=== PATIENT | male | born 1955 | race Caucasian/White ===

== ENCOUNTER 2017-05-12 04:49 | Inpatient (IN) | payer BC ==
[2017-04-15 13:51] VITALS: BMI 31.0
--- NOTE | 2017-04-15 14:25 | PAT Medication Instructions ---
Service Date Apr 15, 2017. Current Home Medication List Cholecalciferol (Vitamin D3), 1 TAB PO QAM Ibuprofen (Advil), 400 MG PO QID PRN for Pain [Dr. Sara Vernon], 1 PKT PO QAM Medication Instructions For Your Scheduled Surgery - Hold the following medications 10 days prior to surgery: Ibuprofen (Advil), 400 MG PO QID PRN for Pain - Hold the following medications the morning of surgery: [Dr. Sara Vernon], 1 PKT PO QAM Cholecalciferol (Vitamin D3), 1 TAB PO QAM If you have any questions please call us at [phone] or [phone] or [phone]
--- NOTE | 2017-04-15 15:16 | DIAGNOSTIC IMAGING REPORT ---
CHEST 2 VIEWS ROUTINE CLINICAL HISTORY: PAT preoperative evaluation COMPARISON STUDY: No previous studies for comparison. FINDINGS: The bones soft tissues and hemidiaphragms are normal. The cardiomediastinal silhouette is normal. The lungs are clear. The pulmonary vasculature is normal. IMPRESSION: Negative chest. The above report was generated using voice recognition software. It may contain grammatical, syntax or spelling errors. Electronically signed by: Sanchez Pedraza M.D. 04/15/2017 3:15 PM Dictated Date/Time: 04/15/2017 3:13 PM
[2017-04-15 15:41] LABS: BASO % 0.4 %; BASO ABS # 0.03 K/uL (0-0.2); EOS % 4.1 %; EOS ABS # 0.34 K/uL (0-0.5); HEMATOCRIT 44.9 % (42-52); HEMOGLOBIN 15.8 g/dL (14.0-18.0); IG# 0.04 K/uL (0.00-0.02); LYMPH % 29.6 %; LYMPH ABS # 2.46 K/uL (1.2-3.4); MEAN CELL VOLUME 85.7 fL (80-100); MEAN CORPUSCULAR HEMOGLOBIN 30.2 pg (25-34); MEAN CORPUSCULAR HGB CONC 35.2 g/dl (32-36); MONO % 8.1 %; MONO ABS # 0.67 K/uL (0.11-0.59); NEUT % 57.3 %; NEUT ABS # 4.78 K/uL (1.4-6.5); PLATELET COUNT 252 K/uL (130-400); RED CELL DISTRIBUTION WIDTH CV 12.8 % (11.5-14.5); RED CELL DISTRIBUTION WIDTH SD 40.3 fL (36.4-46.3); WHITE BLOOD COUNT 8.32 K/uL (4.8-10.8)
[2017-04-15 15:52] LABS: INR 0.9 (0.9-1.1); PTT PATIENT 25.4 SECONDS (21.0-31.0)
[2017-04-16 06:47] LABS: HEMOGLOBIN A1C 6.1 % (4.5-5.6)
--- NOTE | 2017-05-03 13:52 | HISTORY & PHYSICAL EXAMINATION ---
DATE OF ADMISSION: 05/12/2017 CHIEF COMPLAINT: Right hip pain. HISTORY OF PRESENT ILLNESS: Johnie is a 61-year-old male with a 6-month history of right hip pain. The patient rates his pain at 8/10. He has pain with his daily activities. He has limited standing and walking tolerance. Pain is worse with weightbearing. The patient has had physical therapy, anti-inflammatories and injections in the past without relief. He has failed conservative treatment and is scheduled for a right hip replacement. PAST MEDICAL HISTORY: Osteoarthritis. He denies heart disease, diabetes or DVT. PAST SURGICAL HISTORY: Ureteral repair, Achilles tendon repair and ORIF of fibula, left. SOCIAL HISTORY: The patient denies alcohol or tobacco use. He lives in a 3-story home. 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 FAMILY HISTORY: Negative for DVT. MEDICATIONS: Vitamin D 1000 mg. ALLERGIES: GLUTEN. REVIEW OF SYSTEMS: See HPI. Ten other systems reviewed, all negative. PHYSICAL EXAMINATION: VITAL SIGNS: Height 5 feet 7 inches, weight 200 pounds, and BMI 31. GENERAL: This is a well-developed and well-nourished male, who is alert and oriented x3. Mood and affect are appropriate. HEENT: Normocephalic and atraumatic. Mucous membranes are moist and intact. NECK: Supple without lymphadenopathy. HEART: Regular rate and rhythm without murmurs, rubs or gallops. LUNGS: Clear to auscultation without wheezes or rhonchi. ABDOMEN: Soft and nontender. Bowel sounds are equal and active. EXTREMITIES: No ecchymosis, redness or warmth. Thigh and calf are soft and nontender. Range of motion of the hip reproduces pain to the groin. Range of motion is decreased. He is neurovascularly intact. He walks with an antalgic gait. X-RAY EXAMINATION: AP and lateral views show joint space narrowing and osteophyte formation. IMPRESSION: Degenerative joint disease, right hip. PLAN: The patient will be admitted for a right total hip arthroplasty. We will plan on aspirin for DVT prophylaxis. The patient will have [facility] for home physical therapy upon discharge.
[2017-05-12] VITALS (11 sets, daily range): BP systolic 99–170; BP diastolic 69–91; PULSE 64–121; TEMP 36.5–36.7; O2SAT 97–100; Ht 170.2 cm; Wt 88.0 kg
[~2017-05-12] VITALS: Ht 170.2 cm; Wt 88.0 kg
[~2017-05-12 04:49] MED LIST: CHOL1000 PO; IBUP-1050 PO; [UNRECOGNIZED DRUG - REMARK] PO
[2017-05-12] MEDS ORDERED: ROPIVACAINE 5MG/ML 30 ML 150 MG, BUPIVACAINE 0.5% MPF INJ 30 ML, EpINEphrine HCL INJ 0.... INFIL SCH ×8 (06:00)
[2017-05-12] MEDS ORDERED: CeleBREX 200 MG CAP PO SCH (06:00)
[2017-05-12] MEDS ORDERED: LACTATED RINGER'S 1000ML 1,000 ML IV SCH (06:00)
[2017-05-12] MEDS ORDERED: FAMOTIDINE 20 MG TAB PO SCH (06:00)
[2017-05-12] MEDS ORDERED: GABAPENTIN 600 MG PO SCH (06:00)
[2017-05-12] MEDS ORDERED: DEXAMETHASONE 4 MG TAB PO SCH (06:00)
[2017-05-12] MEDS ORDERED: LACTATED RINGER'S 1000ML 500 ML IV SCH (06:00)
[2017-05-12] MEDS ORDERED: METOCLOPRAMIDE HCL 10 MG TAB PO SCH (06:00)
[2017-05-12] MEDS: CEFAZOLIN 2000MG IV PUSH 15 ML IV SCH ×2 (06:00→06:05)
[2017-05-12] MEDS ORDERED: ACETAMINOPHEN 500 MG TAB PO SCH (06:00)
[2017-05-12] MEDS: TRANEXAMIC ACID INJ 1,000 MG x 2 Bags IV SCH ×4 (06:30→06:40)
[2017-05-12] MEDS ORDERED: BUPIVACAINE 0.5 % 5 MG/1 ML PF 10ML VIAL ONE (06:33)
[2017-05-12] MEDS ORDERED: MIDAZOLAM HCL 1 MG/ML 2ML VIAL ONE ×2 (06:43)
[2017-05-12] MEDS ORDERED: FENTANYL CITRATE INJ 50 MCG/1 ML 2 ML VIAL ONE (06:43)
[2017-05-12] MEDS ORDERED: POVIDONE-IODINE OP SOLN 30 ML BTL ONE (06:58)
[2017-05-12] MEDS ORDERED: BACITRACIN 50000 UNIT VIAL ONE (06:58)
[2017-05-12] MEDS ORDERED: ORTHO JOINT ANESTHETIC ONE (06:58)
[2017-05-12] MEDS: CEFAZOLIN IV 2,000 MG in SYRINGE 0 ML IV SCH ×2 (07:04→21:47)
--- NOTE | 2017-05-12 07:04 | History & Physical Bridge Note ---
H&P Re-Evaluation Bridge Note: I have examined the patient, reviewed the History & Physical and in the interval since the performance of the History & Physical I have noted the following changes of clinical significance: No changes noted
[2017-05-12] MEDS ORDERED: PROPOFOL IV EMULSION 10 MG/ML 20 ML VIAL IV ONE (08:07)
--- NOTE | 2017-05-12 08:23 | [facility] Post Operative Brief Note ---
Immediate Operative Summary Operative Date May 12, 2017. Pre-Operative Diagnosis Right hip degenerative joint disease Post-Operative Diagnosis Right hip degenerative joint disease Procedure(s) Performed Right Total Hip Arthroplasty Surgeon Dr. Palmer Talent Associate Surgeon(s) Adilson Small PA-C Estimated Blood Loss 100ml Findings Consistent with Post-Op Diagnosis Specimens Permanent: A: Right Femoral Head Anesthesia Type MAC Spinal Regional Complication(s) none Disposition Accompanied Pt To Recover: no Disposition: Recovery Room / PACU
[2017-05-12] MEDS ORDERED: DiphenhydrAMINE HCL 50 MG/ML VIAL IV PRN (08:30)
[2017-05-12] MEDS ORDERED: MoRPHine SULFATE 2 MG/ML CARP IV PRN (08:30)
[2017-05-12] MEDS ORDERED: MAGNESIUM HYDROXIDE SUSP 30 ML UDC PO PRN (08:30)
[2017-05-12] MEDS ORDERED: ZOLPIDEM TARTRATE 5 MG TAB PO PRN (08:30)
[2017-05-12] MEDS ORDERED: ALUMINUM/MAGNESIUM/SIMETH (MAALOX MAX) 30 ML UDC PO PRN (08:30)
[2017-05-12] MEDS ORDERED: METOCLOPRAMIDE HCL INJ 5 MG/ML 2 ML VIAL IV PRN (08:30)
[2017-05-12] MEDS ORDERED: ONDANSETRON INJ 2 MG/ML 2 ML VIAL IV PRN ×2 (08:30→08:45)
[2017-05-12] MEDS ORDERED: TAMSULOSIN HCL 0.4 MG CAP PO PRN (08:30)
--- NOTE | 2017-05-12 08:35 | OPERATIVE REPORT ---
DATE OF OPERATION: 05/12/2017 PREOPERATIVE DIAGNOSIS: Osteoarthritis right hip. POSTOPERATIVE DIAGNOSIS: Osteoarthritis right hip. PROCEDURE: Right Eduard total hip arthroplasty. SURGEON: Joseph Palmer MD RUBY ENGINEER: KATHY Harrington. ANESTHESIA: Spinal. COMPLICATIONS: None. IMPLANTS USED: Acetabular reamer used 58, acetabular shell 58, femoral stem 3, extended offset, femoral head +5. DESCRIPTION OF THE PROCEDURE: Following induction of adequate spinal anesthesia, the patient was placed in left lateral decubitus position and right Jovana-Langenbeck incision was made. Subcutaneous tissue was sharply dissected. Electrocautery used for hemostasis. The fascia was incised throughout the length of the wound and a hu scissor placed beneath the short external rotators. The pyriformis was tagged with #1 Vicryl. The short external rotators were divided from the posterior aspect of the femur using electrocautery. These were swept posteriorly. A T-capsulotomy incision was made and the hip was dislocated using a combination of flexion, adduction, and internal rotation. Exposure of the femoral neck with old-style Hohmann and a blunt Hohmann was carried out and a femoral rasp was utilized as a guide for making the appropriate level femoral neck cut. This bone fragment was removed and reserved on the back table. Next, attention was turned to the acetabulum where bone hook was used to retract the femur while the offset retractors were placed anterior and posteriorly. A double-angled Hohmann was placed in superior and anterior position exposing the acetabulum nicely. Acetabular labrum as well as posterior capsule elements were removed using a long knife and a long pickup. Fovea centralis was cleared of all soft tissue. Sequential reamings were carried up to a 58 and decision was made to proceed with impaction of a 58 trabecular metal cup. This was impacted and held using a single 35 mm bone screw. The acetabular liner was placed with 15 of elevated posterior wall in the superior and posterior position. Next, attention was turned to the femoral portion of the case where a Bovie and pickup was used to further clear short external rotators from their insertion on the femur. Box osteotome was used to gain access to the femoral canal and the T-handled rasp and a rattail rasp were used to further open and lateral the canal. Sequentially raspings were carried up to a 3, which gave good fit and fill of the proximal femur. A trial reduction was carried out and a 132 degree femoral neck component was chosen as the size to be used. A +5 mm femoral head was impacted into position, +0 head was utilized. The trial reduction was stable in all degrees of rotation with no [id number] impingement. The hip was dislocated. The trial components were removed and the final femoral stem, neck, and femoral head combination were assembled on the back table and impacted into position. Hip was relocated. Range of motion checked once again successful and the wound was irrigated. The pyriformis repaired to the greater trochanter using #1 Vicryl [id number] suture. A Hemovac drain was placed and the fascia was closed using #1 Vicryl, subcutaneous tissue was closed using 0 Dexon, and skin was closed with erika. Sterile dressing of Adaptic, 4 x 4's, ABDs, and foam tape was applied. The patient tolerated the procedure well. Due to the complex nature of the procedure, the entire surgery was performed with the operational assistance of Adilson Small PA-C. The assistant professor of geography, under direct supervision, was involved in the actual performance of all aspects of the surgical procedure including hemostasis, tissue retraction and incision, instrument management, patient positioning, and wound closure. DISPOSITION: Recovery room, stable. I attest to the content of the Intraoperative Record and any orders documented therein. Any exception s are noted below.
[2017-05-12] MEDS ORDERED: ATROPINE SULFATE 0.1 MG/ML 5ML SYR IV PRN (08:45)
[2017-05-12] MEDS ORDERED: KETOROLAC TROMETHAMINE 30 MG/ML VIAL IV. PRN (08:45)
[2017-05-12] MEDS ORDERED: PHENYLEPHRINE 100MCG/ML 5ML SYR IV PRN (08:45)
[2017-05-12] MEDS ORDERED: EpHEDrine SULFATE INJ 50 MG/ML AMP IV PRN (08:45)
[2017-05-12] MEDS ORDERED: HYDROmorphone INJ 2 MG/ML SYR/VIAL IV PRN (08:45)
[2017-05-12] MEDS: PANTOprazole SOD 40 MG TAB PO SCH (09:00)
--- NOTE | 2017-05-12 09:24 | DIAGNOSTIC IMAGING REPORT ---
AP PELVIS, CROSSTABLE LATERAL RIGHT HIP History: Right total hip arthroplasty. Degenerative arthritis. Postop. FINDINGS: The patient is status post a right total hip arthroplasty. The hardware is intact. No fracture or dislocation. Surgical drains are in place. Calcification within the proximal medial thigh likely representing myositis ossificans. IMPRESSION: Right total hip arthroplasty. No evidence for hardware complication Electronically signed by: Tnaner Masterson M.D. 05/12/2017 9:23 AM Dictated Date/Time: 05/12/2017 9:22 AM
--- NOTE | 2017-05-12 09:26 | Anesthesiology Progress Note ---
Anesthesia Post Op Note Date & Time May 12, 2017 at 09:26 Vital Signs Pain Intensity: 0 Vital Signs Past 12 Hours Date Time Temp Pulse Resp B/P (MAP) Pulse Ox O2 Delivery O2 Flow Rate FiO2 05/12/17 09:21 70 21 126/75 98 05/12/17 09:21 69 21 05/12/17 09:18 36.6 99 Nasal Cannula 2 05/12/17 09:17 128/76 05/12/17 09:16 73 25 05/12/17 09:16 78 25 99 05/12/17 09:11 79 21 127/74 96 05/12/17 09:11 79 21 05/12/17 09:10 85 15 98 05/12/17 09:10 78 15 05/12/17 09:07 127/86 05/12/17 09:05 77 21 97 05/12/17 09:05 78 21 05/12/17 09:01 123/73 05/12/17 09:00 77 17 99 05/12/17 09:00 78 17 05/12/17 08:59 80 21 100 05/12/17 08:59 74 21 05/12/17 08:56 120/70 05/12/17 08:54 91 25 05/12/17 08:54 86 25 95 05/12/17 08:51 94/69 05/12/17 08:49 73 22 05/12/17 08:49 72 22 97 05/12/17 08:47 97/73 05/12/17 08:44 76 21 98 05/12/17 08:44 76 21 05/12/17 08:41 128/71 05/12/17 08:39 89 12 05/12/17 08:39 89 12 96 05/12/17 08:39 36.1 89 16 124/73 99 Oxymask 10 05/12/17 05:35 36.7 85 20 170/91 97 Room Air Notes Mental Status: alert / awake / arousable, participated in evaluation Pt Amnestic to Procedure: Yes Nausea / Vomiting: adequately controlled Pain: adequately controlled Airway Patency, RR, SpO2: stable & adequate BP & HR: stable & adequate Hydration State: stable & adequate Anesthetic Complications: no major complications apparent
[2017-05-12] MEDS: D5W AND 1/2NSS + 20MEQ KCL 1,000 ML IV SCH ×2 (11:00→21:18)
[2017-05-12] MEDS: FERROUS GLUCONATE 324 MG TAB PO SCH ×2 (13:03→17:38)
[2017-05-12] MEDS: OXYCODONE HCL IR 5 MG TAB (IMMEDIATE RELEASE) PO PRN (17:28)
[2017-05-12] MEDS ORDERED: NURSING VERBAL MED ORDER ONE (19:30)
[2017-05-12] MEDS ORDERED: SODIUM CHLORIDE 0.9% 1000ML 1,000 ML IV SCH (19:45)
[2017-05-12] MEDS ORDERED: GLUCOSE 40% GEL 15 GM TUBE PO PRN (20:30)
[2017-05-12] MEDS ORDERED: GLUCOSE 10 TABS/TUBE PO PRN (20:30)
[2017-05-12] MEDS ORDERED: GLUCAGON FOR INJ 1 MG VIAL SQ PRN (20:30)
[2017-05-12] MEDS ORDERED: DEXTROSE 50% 50 ML SYR IV PRN (20:30)
--- NOTE | 2017-05-12 20:41 | Medical Consult ---
Consultation Date of Consultation: May 12, 2017. Attending Physician: Joseph Palmer M.D. Reason for Consultation: Consulted for elevated HbA1c History of Present Illness 61 yo male with right hip degenerative joint disease who had failed conservative management and is s/p right total hip arthroplasty POD 0 The medical team has been consulted to manage an elevated HbA1c. Also called to see patient stat because patient had a syncopal episode. Patient noted to have surgery at 7am this morning. He had been feeling well all day while resting in bed. This afternoon, patient had stood up, stated to the nurse he was feeling lightheaded and was told to sit back down. He continued to feeling unwell, and laid down and lost consciousness for ~10 seconds as per nursing staff. Check of BP showed SBP 99/69 and blood glucose was 266 - patient had supper 1 hour prior. Medical team was informed and went up to assess the patient. 1L bolus was ordered stat and patient subsequently started feeling much better. Patient denies vasovagal symptoms, although he has felt slightly diaphoretic this afternoon. No chest pain, palpitation, heart racing, dyspnea, N/V, lower extremity swelling, or change in BM. He states good urine output. Was feeling right hip pain, and received oxycodone 45 min prior. He has been tolerating PO, admits that he is been sipping water through out the day, and that he is also drinking tea at each meal. Operative note states 100ml blood loss only. Patient states his drain is full currently and has already been changed once prior. He denies cardiac history or diabetic history. He does states DM in both his maternal and paternal family. ROS unremarkable except as noted above. Past Medical/Surgical History Osteoarthritis of right hip. He denies heart disease, diabetes or DVT. Family History Noncontributory Social History Smoking Status: Never Smoker Smokeless Tobacco Use: No Drug Use: none Marital Status: Housing Status: lives with family Occupation Status: employed Allergies Coded Allergies: Gluten (Verified Allergy, Unknown, DIGESTIVE ISSUES, 04/15/17) NO KNOWN DRUG ALLERGIES (Verified Allergy, Unknown, NKDA, 04/15/17) Current Inpatient Medications Current Inpatient Medications Medications (Trade) Dose Ordered Sig/Chago Route Start Time Stop Time Status Last Admin Dose Admin Lactated Ringer's 1,000 ml @ 15 mls/hr Q24H IV 05/12/17 06:00 05/13/17 05:59 05/12/17 06:05 15 MLS/HR Potassium Chloride/Dextrose/ Sod Cl 1,000 ml @ 100 mls/hr Q10H IV 05/12/17 10:00 06/11/17 09:59 05/12/17 11:00 100 MLS/HR Celecoxib (CeleBREX CAP) 200 mg BID PO 05/12/17 21:00 06/11/17 20:59 Oxycodone HCl (Roxicodone Immediate Rel Tab) 1 TABLET FOR PAIN RATING... Q4H PRN PO 05/12/17 08:30 05/26/17 08:29 05/12/17 17:28 5 MG Morphine Sulfate (MoRPHine SULFATE INJ) 3 mg Q3R PRN IV 05/12/17 08:30 05/26/17 08:29 Magnesium Hydroxide (Milk Of Magnesia Susp) 30 ml Q6H PRN PO 05/12/17 08:30 06/11/17 08:29 Docusate Sodium (coLACE CAP) 100 mg BID PO 05/12/17 21:00 06/11/17 20:59 Diphenhydramine HCl (Benadryl Inj) 25 mg Q8H PRN IV 05/12/17 08:30 06/11/17 08:29 Al Hydrox/Mg Hydrox/Simethicone (Maalox Max Susp) 15 ml Q4H PRN PO 05/12/17 08:30 06/11/17 08:29 Zolpidem Tartrate (Ambien Tab) 5 mg HSZ PRN PO 05/12/17 08:30 06/11/17 08:29 Ondansetron HCl (Zofran Inj) 4 mg Q6H PRN IV 05/12/17 08:30 06/11/17 08:29 Metoclopramide HCl (Reglan Inj) 10 mg Q6H PRN IV 05/12/17 08:30 06/11/17 08:29 Ferrous Gluconate (Ferrous Gluconate Tab) 324 mg TIDM PO 05/12/17 12:30 06/11/17 12:29 05/12/17 17:38 324 MG Pantoprazole Sodium (Protonix Tab) 40 mg QAM PO 05/12/17 09:00 05/16/17 08:59 Aspirin (Ecotrin Tab) 325 mg BID PO 05/12/17 21:00 06/11/17 20:59 Cefazolin Sodium 2000 mg/Syringe 15 ml @ 100 mls/hr Q8H IV 05/12/17 14:00 05/12/17 22:08 05/12/17 07:04 100 MLS/HR Sodium Chloride 1,000 ml @ 999 mls/hr Q1H1M IV 05/12/17 19:45 05/12/17 20:45 05/12/17 19:35 999 MLS/HR Insulin Aspart (novoLOG ASPART) SLIDING SCALE If C... ACHS SC 05/12/17 21:00 06/11/17 20:59 Glucose (Glucose 40% Gel) 15-30 GRAMS 15 GRAMS... UD PRN PO 05/12/17 20:30 06/11/17 20:29 Glucose (Glucose Chew Tab) 4-8 Tablets 4 Tabl... UD PRN PO 05/12/17 20:30 06/11/17 20:29 Dextrose (Dextrose 50% 50ML Syringe) 25-50ML OF 50% DW IV FOR... UD PRN IV 05/12/17 20:30 06/11/17 20:29 Glucagon (Glucagon Inj) 1 mg UD PRN SQ 05/12/17 20:30 06/11/17 20:29 Physical Exam Date Time Temp Pulse Resp B/P (MAP) Pulse Ox O2 Delivery O2 Flow Rate FiO2 05/12/17 19:25 36.5 92 16 120/72 (88) 97 Room Air 05/12/17 18:20 36.7 70 18 99/69 (79) 98 Room Air 05/12/17 16:00 36.7 114 20 145/89 (107) 98 Nasal Cannula 2.0 05/12/17 15:35 99 Room Air 05/12/17 12:30 36.7 90 16 127/75 (92) 98 Room Air 2.0 05/12/17 11:31 36.6 87 16 155/81 (105) 98 Nasal Cannula 2.0 05/12/17 10:31 76 16 127/79 (95) 99 Nasal Cannula 2.0 05/12/17 10:03 64 16 127/81 (96) 99 Nasal Cannula 2.0 05/12/17 09:30 Nasal Cannula 2.0 05/12/17 09:30 Nasal Cannula 2.0 05/12/17 09:30 36.5 64 16 113/69 (84) 99 Nasal Cannula 2.0 05/12/17 09:21 70 21 126/75 98 05/12/17 09:21 69 21 05/12/17 09:18 36.6 99 Nasal Cannula 2 05/12/17 09:17 128/76 05/12/17 09:16 73 25 05/12/17 09:16 78 25 99 05/12/17 09:11 79 21 127/74 96 05/12/17 09:11 79 21 05/12/17 09:10 85 15 98 05/12/17 09:10 78 15 05/12/17 09:07 127/86 05/12/17 09:05 77 21 97 05/12/17 09:05 78 21 05/12/17 09:01 123/73 05/12/17 09:00 77 17 99 05/12/17 09:00 78 17 05/12/17 08:59 80 21 100 05/12/17 08:59 74 21 05/12/17 08:56 120/70 05/12/17 08:54 91 25 05/12/17 08:54 86 25 95 05/12/17 08:51 94/69 05/12/17 08:49 73 22 05/12/17 08:49 72 22 97 05/12/17 08:47 97/73 05/12/17 08:44 76 21 98 05/12/17 08:44 76 21 05/12/17 08:41 128/71 05/12/17 08:39 89 12 05/12/17 08:39 89 12 96 05/12/17 08:39 36.1 89 16 124/73 99 Oxymask 10 05/12/17 05:35 36.7 85 20 170/91 97 Room Air General Appearance: WD/WN, no apparent distress Head: normocephalic, atraumatic Eyes: normal inspection, sclerae normal ENT: hearing grossly normal, pharynx normal, + pertinent finding (dry mucous membranes) Neck: supple, no adenopathy Respiratory/Chest: normal breath sounds, no respiratory distress, no accessory muscle use Cardiovascular: regular rate, rhythm, no murmur, normal peripheral pulses Abdomen/GI: normal bowel sounds, non tender, soft Back: normal inspection, no CVA tenderness Extremities/Musculoskelatal: no calf tenderness, no pedal edema, + pertinent finding (drain from right hip filled with sangiunous fluid) Neurologic/Psych: alert, normal mood/affect, oriented x 3 Skin: normal color, warm/dry, no rash Laboratory Results Last 24 Hours Test 05/12/17 10:40 05/12/17 18:22 05/12/17 20:12 05/12/17 20:18 Hepatitis C Antibody Screen NEG Bedside Glucose 232 mg/dl Assessment & Plan 61 yo male with right hip degenerative joint disease who had failed conservative management and is s/p right total hip arthroplasty POD 0 Elevated HbA1c - Given recent administration of Decadron, family history of DM, and some evidence of mild insulin resistance will start the patient on ISS with accu- checks ac/hs Syncopal episode - IVF NSS 1L fluid bolus, then continue maintenance IVF. Also encourage PO fluids - Ordered EKG and trop - showed NSR with normal intervals and no evidence of ACS. Troponin negative - Ordered orthostatic BP post fluid balance - negative - Recheck labs: CBC showed significant drop in Hb from 15.8 to 12.1. Continue to trend H/H. Coags WNL and no electrolyte abnormalities. Continue to trend - It is likely that syncopal episode is secondary to combination of dehydration and relative anemia. Continue to monitor. Attending addendum: I have physically seen this patient, have supervised the medical residents activities, and agree with the H&P unless as otherwise noted. Assessment and Plan: Syncope status post right total hip arthroplasty-- Laboratory workup and assessment as above. Orthostatic vitals If recurs will transfer to telemetry. Hyperglycemia-- Aggravated by Decadron. Placed on Accu-Cheks before meals and at bedtime with NovoLog coverage for scale. We will follow along during hospital stay. Resident Tracking Resident Involvement: Resident Care Provided Care Provided: Adult Hospital Medicine
[2017-05-12 20:47] LABS: HEMATOCRIT 34.5 % (42-52); HEMOGLOBIN 12.1 g/dL (14.0-18.0); IG# 0.07 K/uL (0.00-0.02); LYMPH % 4.3 %; LYMPH ABS # 0.87 K/uL (1.2-3.4); MEAN CORPUSCULAR HEMOGLOBIN 29.8 pg (25-34); MEAN PLATELET VOLUME 9.3 fL (7.4-10.4); MONO % 4.5 %; MONO ABS # 0.92 K/uL (0.11-0.59); NEUT % 90.9 %; NEUT ABS # 18.55 K/uL (1.4-6.5); PLATELET COUNT 224 K/uL (130-400); RED CELL DISTRIBUTION WIDTH CV 12.7 % (11.5-14.5); RED CELL DISTRIBUTION WIDTH SD 39.2 fL (36.4-46.3); WHITE BLOOD COUNT 20.41 K/uL (4.8-10.8)
[2017-05-12 21:08] LABS: ALBUMIN 2.9 gm/dl (3.4-5.0); ALT/SGPT 31 U/L (12-78); BLOOD UREA NITROGEN 13 mg/dl (7-18); CALCIUM 7.7 mg/dl (8.5-10.1); CARBON DIOXIDE 24 mmol/L (21-32); CREATININE 1.14 mg/dl (0.60-1.40); GLUCOSE 199 mg/dl (70-99); POTASSIUM 4.1 mmol/L (3.5-5.1); SODIUM 138 mmol/L (136-145)
[2017-05-12 21:11] LABS: ALKALINE PHOSPHATASE 68 U/L (45-117); AST/SGOT 35 U/L (15-37); TOTAL PROTEIN 5.8 gm/dl (6.4-8.2)
[2017-05-12] MEDS: DOCUSATE SODIUM 100 MG CAP PO SCH (21:18)
[2017-05-12] MEDS: ASPIRIN 325 MG ECTAB PO SCH (21:18)
[2017-05-12] MEDS: CeleBREX 200 MG CAP PO SCH (21:19)
[2017-05-12] MEDS: INSULIN ASPART 100 UNITS/ML 3 ML PEN SC SCH (21:20)
[2017-05-12 21:26] LABS: MEAN CORPUSCULAR HGB CONC 35.1 g/dl (32-36)
[2017-05-13] VITALS (8 sets, daily range): BP systolic 119–150; BP diastolic 64–89; PULSE 62–103; TEMP 36.5–37.1; O2SAT 96–100
[2017-05-13] MEDS: D5W AND 1/2NSS + 20MEQ KCL 1,000 ML IV SCH (05:48)
[2017-05-13 07:45] LABS: EOS % 0.1 %; EOS ABS # 0.01 K/uL (0-0.5); HEMATOCRIT 33.8 % (42-52); HEMOGLOBIN 11.2 g/dL (14.0-18.0); IG# 0.05 K/uL (0.00-0.02); LYMPH % 8.6 %; LYMPH ABS # 1.51 K/uL (1.2-3.4); MEAN CELL VOLUME 85.8 fL (80-100); MEAN CORPUSCULAR HEMOGLOBIN 28.4 pg (25-34); MEAN CORPUSCULAR HGB CONC 33.1 g/dl (32-36); MEAN PLATELET VOLUME 9.6 fL (7.4-10.4); MONO ABS # 1.41 K/uL (0.11-0.59); NEUT ABS # 14.61 K/uL (1.4-6.5); PLATELET COUNT 225 K/uL (130-400); RED CELL DISTRIBUTION WIDTH CV 12.8 % (11.5-14.5); RED CELL DISTRIBUTION WIDTH SD 39.8 fL (36.4-46.3); WHITE BLOOD COUNT 17.59 K/uL (4.8-10.8)
[2017-05-13 07:52] LABS: PTT PATIENT 22.9 SECONDS (21.0-31.0)
--- NOTE | 2017-05-13 07:56 | Orthopedic Progress Note ---
Orthopedic Progress Note Date of Service May 13, 2017. Subjective Post OP Day: 1 Reports: feeling well, Denies: chest pain, SOB, nausea / vomiting, light headedness, calf pain Objective calves soft nontender, N/V intact, capillary refill less than 2 sec., incision C /D/I, A&O x3, toes mobile, hemovac drainage (200/25cc per shift) Date Time Temp Pulse Resp B/P (MAP) Pulse Ox O2 Delivery O2 Flow Rate FiO2 05/13/17 03:13 36.6 62 16 130/74 (92) 98 Room Air 05/12/17 23:40 Room Air 05/12/17 21:56 75 20 129/81 (97) 100 Room Air 100 120/77 (91) 121 123/81 (95) 05/12/17 19:25 36.5 92 16 120/72 (88) 97 Room Air 05/12/17 18:20 36.7 70 18 99/69 (79) 98 Room Air 05/12/17 16:00 36.7 114 20 145/89 (107) 98 Nasal Cannula 2.0 05/12/17 15:35 99 Room Air 05/12/17 12:30 36.7 90 16 127/75 (92) 98 Room Air 2.0 05/12/17 11:31 36.6 87 16 155/81 (105) 98 Nasal Cannula 2.0 05/12/17 10:31 76 16 127/79 (95) 99 Nasal Cannula 2.0 05/12/17 10:03 64 16 127/81 (96) 99 Nasal Cannula 2.0 05/12/17 09:30 Nasal Cannula 2.0 05/12/17 09:30 Nasal Cannula 2.0 05/12/17 09:30 36.5 64 16 113/69 (84) 99 Nasal Cannula 2.0 05/12/17 09:21 70 21 126/75 98 05/12/17 09:21 69 21 05/12/17 09:18 36.6 99 Nasal Cannula 2 05/12/17 09:17 128/76 05/12/17 09:16 73 25 05/12/17 09:16 78 25 99 05/12/17 09:11 79 21 127/74 96 05/12/17 09:11 79 21 05/12/17 09:10 85 15 98 05/12/17 09:10 78 15 05/12/17 09:07 127/86 05/12/17 09:05 77 21 97 05/12/17 09:05 78 21 05/12/17 09:01 123/73 05/12/17 09:00 77 17 99 05/12/17 09:00 78 17 05/12/17 08:59 80 21 100 05/12/17 08:59 74 21 05/12/17 08:56 120/70 05/12/17 08:54 91 25 05/12/17 08:54 86 25 95 05/12/17 08:51 94/69 05/12/17 08:49 73 22 05/12/17 08:49 72 22 97 05/12/17 08:47 97/73 05/12/17 08:44 76 21 98 05/12/17 08:44 76 21 05/12/17 08:41 128/71 05/12/17 08:39 89 12 05/12/17 08:39 89 12 96 05/12/17 08:39 36.1 89 16 124/73 99 Oxymask 10 Laboratory Results 24 Hours: Test 05/12/17 20:35 05/13/17 07:19 White Blood Count 20.41 K/uL 17.59 K/uL Red Blood Count 4.06 M/uL 3.94 M/uL Hemoglobin 12.1 g/dL 11.2 g/dL Hematocrit 34.5 % 33.8 % Mean Corpuscular Volume 85.0 fL 85.8 fL Mean Corpuscular Hemoglobin 29.8 pg 28.4 pg Mean Corpuscular Hemoglobin Concent 35.1 g/dl 33.1 g/dl Platelet Count 224 K/uL 225 K/uL Mean Platelet Volume 9.3 fL 9.6 fL Neutrophils (%) (Auto) 90.9 % 83.0 % Lymphocytes (%) (Auto) 4.3 % 8.6 % Monocytes (%) (Auto) 4.5 % 8.0 % Eosinophils (%) (Auto) 0.0 % 0.1 % Basophils (%) (Auto) 0.0 % 0.0 % Neutrophils # (Auto) 18.55 K/uL 14.61 K/uL Lymphocytes # (Auto) 0.87 K/uL 1.51 K/uL Monocytes # (Auto) 0.92 K/uL 1.41 K/uL Eosinophils # (Auto) 0.00 K/uL 0.01 K/uL Basophils # (Auto) 0.00 K/uL 0.00 K/uL Prothromb Time International Ratio 1.0 Prothrombin Time 10.3 SECONDS Assessment & Plan Assessment: POD#1 SP RIGHT TAMARA SYNCOPAL EPISODE YESTERDAY- ANEMIA VS HYPOTENSION Plan: PT/OT DVT PROPH- ASA 325MG BID PAIN MANAGEMENT- MESSI,CELEBREX, TYLENOL DC PLANNING- DC HOME WITH [facility] TOMORROW MEDICAL MANAGEMENT - TREND H&H - TROPONIN NEG - NEW ONSET HYPERGLYCEMIA, CONT SSI, WILL NEED OUTPATIENT FOLLOW UP. - DC IVF AT THEIR DISCRETION DC DRESSING/DRAIN IN AM..
--- NOTE | 2017-05-13 08:13 | Clinical Documentation Query ---
CLINICAL DOCUMENTATION QUERY 61 yo male s/p right total hip arthroplasty. Hgb 15.8 pre-admission and trended down to 11.2. In your clinical opinion is this patient being managed for: ( ) Acute blood loss anemia ( ) Not Agree ( ) Other explanation of clinical findings (Please Explain) ( ) Unable to determine (Please Define) ( ) Need to Discuss The medical record reflects the following clinical findings, treatment, and risk factors. Clinical Indicators: As above, syncopal episode Treatment: IV hydration, type and screen, serial CBCs Risk Factors: S/P surgical intervention Please clarify and document your clinical opinion in the progress notes and discharge summary. Terms such as "probable", "suspected", "likely", "questionable", "possible", or "still to be ruled out" are acceptable. IF IN AGREEMENT, YOU MUST DOCUMENT ABOVE DIAGNOSTIC STATEMENT IN DAILY PROGRESS NOTES AND DISCHARGE SUMMARY. This document is not part of the patient's record. Thank You, Jennifer Greco RN [phone]
[2017-05-13 08:14] LABS: ALBUMIN 2.8 gm/dl (3.4-5.0); CALCIUM 8.3 mg/dl (8.5-10.1); CREATININE 0.79 mg/dl (0.60-1.40); POTASSIUM 4.2 mmol/L (3.5-5.1)
[2017-05-13] MEDS ORDERED: NURSING VERBAL MED ORDER ONE ×2 (08:30→16:15)
[2017-05-13] MEDS ORDERED: SODIUM CHLORIDE 0.9% 1000ML 1,000 ML IV SCH (08:45)
[2017-05-13] MEDS: CeleBREX 200 MG CAP PO SCH ×2 (08:51→21:43)
[2017-05-13] MEDS: DOCUSATE SODIUM 100 MG CAP PO SCH ×2 (08:51→21:43)
[2017-05-13] MEDS: ASPIRIN 325 MG ECTAB PO SCH ×2 (08:51→21:43)
[2017-05-13] MEDS: FERROUS GLUCONATE 324 MG TAB PO SCH ×3 (08:51→19:00)
[2017-05-13] MEDS: PANTOprazole SOD 40 MG TAB PO SCH (08:51)
[2017-05-13] MEDS: INSULIN ASPART 100 UNITS/ML 3 ML PEN SC SCH ×4 (08:57→21:00)
[2017-05-13] MEDS: OXYCODONE HCL IR 5 MG TAB (IMMEDIATE RELEASE) PO PRN (09:00)
--- NOTE | 2017-05-13 10:30 | Clinical Documentation Query ---
CLINICAL DOCUMENTATION QUERY 61 yo male s/p right total hip arthroplasty. Hgb 15.8 pre-admission and trended down to 11.2. In your clinical opinion is this patient being managed for: ( x ) Acute blood loss anemia ( ) Not Agree ( ) Other explanation of clinical findings (Please Explain) ( ) Unable to determine (Please Define) ( ) Need to Discuss The medical record reflects the following clinical findings, treatment, and risk factors. Clinical Indicators: As above, syncopal episode Treatment: IV hydration, type and screen, serial CBCs Risk Factors: S/P surgical intervention Please clarify and document your clinical opinion in the progress notes and discharge summary. Terms such as "probable", "suspected", "likely", "questionable", "possible", or "still to be ruled out" are acceptable. IF IN AGREEMENT, YOU MUST DOCUMENT ABOVE DIAGNOSTIC STATEMENT IN DAILY PROGRESS NOTES AND DISCHARGE SUMMARY. This document is not part of the patient's record. Thank You, Jennifer Greco RN [phone]
--- NOTE | 2017-05-13 14:46 | Family Medicine Progress Note ---
Progress Note Date of Service May 13, 2017. Subjective Pt evaluation today including: conversation w/ patient, physical exam, chart review, lab review Pain: well controlled PO Intake: good Voiding: no voiding problems denies any CP, dizziness, lightheaded, SOB, palpitations pain is well controlled Constitutional: No fever, No chills Eyes: No worsening of vision ENT: No hearing loss Respiratory: No cough, No sputum Cardiovascular: No chest pain Breast: No breast lump Abdomen: No pain, No nausea Musculoskeletal: No joint pain Male : No dysuria, No urinary frequency Neurologic: No memory loss Psychiatric: No depression symptoms Heme: No abnormal bleeding/bruising Medications Current Inpatient Medications Medications (Trade) Dose Ordered Sig/Chago Route Start Time Stop Time Status Last Admin Dose Admin Celecoxib (CeleBREX CAP) 200 mg BID PO 05/12/17 21:00 06/11/17 20:59 05/13/17 08:51 200 MG Oxycodone HCl (Roxicodone Immediate Rel Tab) 1 TABLET FOR PAIN RATING... Q4H PRN PO 05/12/17 08:30 05/26/17 08:29 05/13/17 09:00 5 MG Morphine Sulfate (MoRPHine SULFATE INJ) 3 mg Q3R PRN IV 05/12/17 08:30 05/26/17 08:29 Magnesium Hydroxide (Milk Of Magnesia Susp) 30 ml Q6H PRN PO 05/12/17 08:30 06/11/17 08:29 Docusate Sodium (coLACE CAP) 100 mg BID PO 05/12/17 21:00 06/11/17 20:59 05/13/17 08:51 100 MG Diphenhydramine HCl (Benadryl Inj) 25 mg Q8H PRN IV 05/12/17 08:30 06/11/17 08:29 Al Hydrox/Mg Hydrox/Simethicone (Maalox Max Susp) 15 ml Q4H PRN PO 05/12/17 08:30 06/11/17 08:29 Zolpidem Tartrate (Ambien Tab) 5 mg HSZ PRN PO 05/12/17 08:30 06/11/17 08:29 Ondansetron HCl (Zofran Inj) 4 mg Q6H PRN IV 05/12/17 08:30 06/11/17 08:29 Metoclopramide HCl (Reglan Inj) 10 mg Q6H PRN IV 05/12/17 08:30 06/11/17 08:29 Ferrous Gluconate (Ferrous Gluconate Tab) 324 mg TIDM PO 05/12/17 12:30 06/11/17 12:29 05/13/17 13:14 324 MG Pantoprazole Sodium (Protonix Tab) 40 mg QAM PO 05/12/17 09:00 05/16/17 08:59 05/13/17 08:51 40 MG Aspirin (Ecotrin Tab) 325 mg BID PO 05/12/17 21:00 06/11/17 20:59 05/13/17 08:51 325 MG Insulin Aspart (novoLOG ASPART) SLIDING SCALE If C... ACHS SC 05/12/17 21:00 06/11/17 20:59 05/13/17 13:18 3 UNITS Glucose (Glucose 40% Gel) 15-30 GRAMS 15 GRAMS... UD PRN PO 05/12/17 20:30 06/11/17 20:29 Glucose (Glucose Chew Tab) 4-8 Tablets 4 Tabl... UD PRN PO 05/12/17 20:30 06/11/17 20:29 Dextrose (Dextrose 50% 50ML Syringe) 25-50ML OF 50% DW IV FOR... UD PRN IV 05/12/17 20:30 06/11/17 20:29 Glucagon (Glucagon Inj) 1 mg UD PRN SQ 05/12/17 20:30 06/11/17 20:29 Sodium Chloride 1,000 ml @ 100 mls/hr Q10H IV 05/13/17 08:45 06/12/17 08:44 05/13/17 09:01 100 MLS/HR Objective Vital Signs Date Time Temp Pulse Resp B/P (MAP) Pulse Ox O2 Delivery O2 Flow Rate FiO2 05/13/17 12:12 36.7 70 16 135/89 (104) 100 Room Air 05/13/17 09:21 102 145/82 (103) 05/13/17 09:20 103 137/84 (101) 05/13/17 09:19 87 150/79 (102) 05/13/17 07:43 36.5 72 16 137/87 (104) 96 Room Air 05/13/17 07:30 Room Air 05/13/17 03:13 36.6 62 16 130/74 (92) 98 Room Air 05/12/17 23:40 Room Air 05/12/17 21:56 75 20 129/81 (97) 100 Room Air 100 120/77 (91) 121 123/81 (95) 05/12/17 19:25 36.5 92 16 120/72 (88) 97 Room Air 05/12/17 18:20 36.7 70 18 99/69 (79) 98 Room Air 05/12/17 16:00 36.7 114 20 145/89 (107) 98 Nasal Cannula 2.0 05/12/17 15:35 99 Room Air Physical Exam General Appearance: WD/WN, no apparent distress Eyes: normal inspection ENT: hearing grossly normal Neck: supple Respiratory/Chest: chest non-tender, lungs clear, normal breath sounds, no respiratory distress Cardiovascular: regular rate, rhythm Abdomen: normal bowel sounds, non tender, soft Extremities: + pertinent finding (s/p right total hip replacement. drain with serosanguineous drainage) Neurologic/Psychiatric: alert, normal mood/affect, oriented x 3 Laboratory Results 05/13/17 07:19 Red Blood Count 3.94, Mean Corpuscular Volume 85.8, Mean Corpuscular Hemoglobin 28.4, Mean Corpuscular Hemoglobin Concent 33.1, Mean Platelet Volume 9.6, Neutrophils (%) (Auto) 83.0, Lymphocytes (%) (Auto) 8.6, Monocytes (%) (Auto) 8.0, Eosinophils (%) (Auto) 0.1, Basophils (%) (Auto) 0.0, Neutrophils # (Auto) 14.61, Lymphocytes # (Auto) 1.51, Monocytes # (Auto) 1.41, Eosinophils # (Auto) 0.01, Basophils # (Auto) 0.00 05/13/17 07:19 Test 05/12/17 20:35 05/13/17 07:19 05/13/17 12:15 Troponin I < 0.015 ng/ml (0-0.045) Globulin 2.9 gm/dl (2.5-4.0) Albumin/Globulin Ratio 1.0 (0.9-2) White Blood Count 17.59 K/uL (4.8-10.8) Red Blood Count 3.94 M/uL (4.7-6.1) Hemoglobin 11.2 g/dL (14.0-18.0) Hematocrit 33.8 % (42-52) Mean Corpuscular Volume 85.8 fL (80-100) Mean Corpuscular Hemoglobin 28.4 pg (25-34) Mean Corpuscular Hemoglobin Concent 33.1 g/dl (32-36) Platelet Count 225 K/uL (130-400) Mean Platelet Volume 9.6 fL (7.4-10.4) Neutrophils (%) (Auto) 83.0 % Lymphocytes (%) (Auto) 8.6 % Monocytes (%) (Auto) 8.0 % Eosinophils (%) (Auto) 0.1 % Basophils (%) (Auto) 0.0 % Neutrophils # (Auto) 14.61 K/uL (1.4-6.5) Lymphocytes # (Auto) 1.51 K/uL (1.2-3.4) Monocytes # (Auto) 1.41 K/uL (0.11-0.59) Eosinophils # (Auto) 0.01 K/uL (0-0.5) Basophils # (Auto) 0.00 K/uL (0-0.2) RDW Standard Deviation 39.8 fL (36.4-46.3) RDW Coefficient of Variation 12.8 % (11.5-14.5) Immature Granulocyte % (Auto) 0.3 % Immature Granulocyte # (Auto) 0.05 K/uL (0.00-0.02) Prothrombin Time 10.1 SECONDS (9.0-12.0) Prothromb Time International Ratio 1.0 (0.9-1.1) Activated Partial Thromboplast Time 22.9 SECONDS (21.0-31.0) Partial Thromboplastin Ratio 0.9 Anion Gap 5.0 mmol/L (3-11) Est Creatinine Clear Calc Drug Dose 105.3 ml/min Estimated GFR () 113.1 Estimated GFR (Non- 97.6 BUN/Creatinine Ratio 13.5 (10-20) Calcium Level 8.3 mg/dl (8.5-10.1) Magnesium Level 2.1 mg/dl (1.8-2.4) Total Bilirubin 0.5 mg/dl (0.2-1) Direct Bilirubin 0.1 mg/dl (0-0.2) Aspartate Amino Transf (AST/SGOT) 33 U/L (15-37) Alanine Aminotransferase (ALT/SGPT) 29 U/L (12-78) Alkaline Phosphatase 67 U/L (45-117) Total Protein 6.0 gm/dl (6.4-8.2) Albumin 2.8 gm/dl (3.4-5.0) Bedside Glucose 106 mg/dl (70-99) Assessment and Plan 61 yo male with right hip degenerative joint disease who had failed conservative management and is s/p right total hip arthroplasty POD 1. had syncopal episode last night and was found to be orthostatic, received a fluid bolus and currently receiving maintenance IVF . no longer orthostatic s/p Right hip arthroplasty - POD 1 - mgmt per orthopedics Syncopal episode: likely orthostatic sec to dehydration, post anesthesia - EKG and trop neg - neg orthostatics - hgb at 11.2, from 12.1 from 15.8 about a month ago. recheck hgb Elevated blood sugars: - Decadron and IVF with D51/2 NSS - hgb a1c 6.1 - ISS - counselled about diet and lifestyle modifications DVT prophylaxis: SCDS aspirin 325 mg BID dispo: med/surg Resident Physician Supervision Note: I interviewed and examined the patient. Discussed with Dr. Wharton and agree with findings and plan as documented in the note. Any exceptions or clarifications are listed here: None Documented By: Mario Alberto Serrano feeling better no longer lightheaded. big discussion all questions answered vitlas noted nad breathing unlabord no pallor or icterus symptomatic acute blood loss anemia related to joint replacement - now stable as far as symptoms, BP now reasonable. hyperglycemia - lifestyle as above otherwise as above medically stable, will sign off. please call if we can be of further assistance , thank you Resident Tracking Resident Involvement: Resident Care Provided Care Provided: Adult Hospital Medicine
[2017-05-13 14:57] LABS: HEMATOCRIT 30.8 % (42-52); HEMOGLOBIN 10.4 g/dL (14.0-18.0)
[2017-05-14 05:30] VITALS: BP_SYST 118; BP_SYST 121; BP_SYST 128; BP_DIAS 72; BP_DIAS 75; BP_DIAS 76; PULSE 62; PULSE 72; PULSE 87; O2SAT 100; O2SAT 97; O2SAT 98
[2017-05-14 06:35] LABS: BASO % 0.2 %; BASO ABS # 0.02 K/uL (0-0.2); EOS % 0.6 %; EOS ABS # 0.07 K/uL (0-0.5); HEMATOCRIT 31.1 % (42-52); HEMOGLOBIN 10.4 g/dL (14.0-18.0); IG# 0.08 K/uL (0.00-0.02); LYMPH % 19.8 %; LYMPH ABS # 2.31 K/uL (1.2-3.4); MEAN CELL VOLUME 86.6 fL (80-100); MEAN CORPUSCULAR HGB CONC 33.4 g/dl (32-36); MEAN PLATELET VOLUME 9.6 fL (7.4-10.4); MONO % 10.4 %; MONO ABS # 1.21 K/uL (0.11-0.59); NEUT % 68.3 %; NEUT ABS # 7.96 K/uL (1.4-6.5); PLATELET COUNT 182 K/uL (130-400); RED CELL DISTRIBUTION WIDTH SD 41.5 fL (36.4-46.3); WHITE BLOOD COUNT 11.65 K/uL (4.8-10.8)
[2017-05-14 06:47] LABS: INR 0.9 (0.9-1.1); PTT PATIENT 25.4 SECONDS (21.0-31.0)
[2017-05-14 07:12] VITALS: BP 114/70; PULSE 70; TEMP 36.8; O2SAT 98
[2017-05-14 07:14] LABS: ALBUMIN 2.8 gm/dl (3.4-5.0); CREATININE 0.72 mg/dl (0.60-1.40); POTASSIUM 3.7 mmol/L (3.5-5.1)
[2017-05-14 07:17] LABS: TOTAL PROTEIN 5.9 gm/dl (6.4-8.2)
[2017-05-14 08:33] VITALS: BP_SYST 130; BP_SYST 144; BP_DIAS 71; BP_DIAS 80; PULSE 86; PULSE 92
[2017-05-14] MEDS: FERROUS GLUCONATE 324 MG TAB PO SCH (08:38)
[2017-05-14] MEDS: CeleBREX 200 MG CAP PO SCH (08:39)
[2017-05-14] MEDS: ASPIRIN 325 MG ECTAB PO SCH (08:39)
[2017-05-14] MEDS: DOCUSATE SODIUM 100 MG CAP PO SCH (08:39)
[2017-05-14] MEDS: PANTOprazole SOD 40 MG TAB PO SCH (08:40)
[2017-05-14] MEDS: OXYCODONE HCL IR 5 MG TAB (IMMEDIATE RELEASE) PO PRN (08:43)
[2017-05-14] MEDS: INSULIN ASPART 100 UNITS/ML 3 ML PEN SC SCH (08:48)
--- NOTE | 2017-05-14 09:21 | Orthopedic Progress Note ---
Orthopedic Progress Note Date of Service May 14, 2017. Subjective Post OP Day: 2 Reports: feeling well, Denies: chest pain, SOB, nausea / vomiting, light headedness, calf pain Objective calves soft nontender, N/V intact, hip located, capillary refill less than 2 sec., incision C/D/I, A&O x3, toes mobile Date Time Temp Pulse Resp B/P (MAP) Pulse Ox O2 Delivery O2 Flow Rate FiO2 05/14/17 08:33 86 130/71 (90) 92 144/80 (101) 05/14/17 08:15 Room Air 05/14/17 07:12 36.8 70 18 114/70 (85) 98 Room Air 05/14/17 05:30 87 18 118/72 (87) 100 Room Air 05/14/17 05:30 62 18 121/75 (90) 98 Room Air 05/14/17 05:30 72 17 128/76 (93) 97 Room Air 05/13/17 23:45 Room Air 05/13/17 23:23 37.1 71 16 119/64 (82) 98 Room Air 05/13/17 15:45 Room Air 05/13/17 15:35 36.7 64 16 146/79 (101) 98 Room Air 05/13/17 12:12 36.7 70 16 135/89 (104) 100 Room Air 05/13/17 09:21 102 145/82 (103) Laboratory Results 24 Hours: Test 05/13/17 14:49 05/14/17 06:20 Hematocrit 30.8 % 31.1 % Hemoglobin 10.4 g/dL 10.4 g/dL White Blood Count 11.65 K/uL Red Blood Count 3.59 M/uL Mean Corpuscular Volume 86.6 fL Mean Corpuscular Hemoglobin 29.0 pg Mean Corpuscular Hemoglobin Concent 33.4 g/dl Platelet Count 182 K/uL Mean Platelet Volume 9.6 fL Neutrophils (%) (Auto) 68.3 % Lymphocytes (%) (Auto) 19.8 % Monocytes (%) (Auto) 10.4 % Eosinophils (%) (Auto) 0.6 % Basophils (%) (Auto) 0.2 % Neutrophils # (Auto) 7.96 K/uL Lymphocytes # (Auto) 2.31 K/uL Monocytes # (Auto) 1.21 K/uL Eosinophils # (Auto) 0.07 K/uL Basophils # (Auto) 0.02 K/uL Prothromb Time International Ratio 0.9 Prothrombin Time 9.7 SECONDS Assessment & Plan Assessment: POD#2 SP RIGHT TAMARA SYNCOPAL EPISODE- ANEMIA VS HYPOTENSION, RESOLVED. Plan: PT/OT DVT PROPH- ASA 325MG BID PAIN MANAGEMENT- MESSI,CELEBREX, TYLENOL DC PLANNING- DC HOME WITH [facility] TODAY MEDICAL MANAGEMENT - TREND H&H - TROPONIN NEG - NEW ONSET HYPERGLYCEMIA, CONT SSI, WILL NEED OUTPATIENT FOLLOW UP. - DC IVF AT THEIR DISCRETION
--- NOTE | 2017-05-14 09:25 | Discharge Instructions ---
Discharge Instructions Date of Service May 14, 2017. Admission Reason for Admission: Right Hip Osteoarthritis Discharge Discharge Diagnosis / Problem: SP RIGHT TAMARA Discharge Goals Goal(s): Decrease discomfort, Improve function, Increase independence Activity Recommendations Activity Limitations: per Instructions/Follow-up section . Instructions / Follow-Up Instructions / Follow-Up ACTIVITY RECOMMENDATIONS: SELF CARE INSTRUCTIONS AFTER TOTAL HIP REPLACEMENT Until the incision and soft tissues around your hip have healed, there is a possibility that the hip prosthesis could dislocate. A. Observe the following precautions to prevent dislocation: 1. Don't bend your hip greater than 90 degrees. 2. Avoid crossing your legs or ankles while standing or lying. 3. Sit with your feet placed 6 inches apart. 4. When sitting, keep your knees below your hips. Sit on a firm surface, avoid deep, soft chairs and couches. Use an elevated toilet seat in the bathroom. 5. Don't bend over at the waist. Use a long handled shoehorn and a sock aid to help you put on your shoes and socks. A pinsetter mechanic automatic can help you potato picker objects that are too high or too low to reach. 6. Keep car riding to a minimum for at least one month after surgery. B. Your balance may be shaky for a while. Use crutches or a walker until directed by your doctor. C. Use hand rails when walking on stairs. D. Wear low heeled shoes with non-slip soles. E. Be sure that your floors are free of things that could trip you - throw rugs , electrical cords, small objects. Avoid wet and waxed floors, especially with crutches and canes. F. Try to walk several times a day with rest periods between. G. Continue with all the exercises taught to you in the hospital. Again, make walking a part of your daily routine. SPECIAL CARE INSTRUCTIONS: VERY IMPORTANT TO READ AND REVIEW A. You may still be at risk for phlebitis and blood clots. 1. Wear surgical stockings (DALILA hose) for 2 weeks after surgery to improve circulation and reduce swelling. 2. Take Aspirin 81mg twice daily for 4 weeks or as directed by your doctor. This is your blood thinner. 3. High risk patients may be prescribed a stronger blood thinner if necessary. 4. If you are on Coumadin normally, your family doctor/mobile paint specialist should monitor your blood work. Expect a phone call the day of or the day after bloodwork is drawn to adjust your dosage. B. You must take antibiotics before having dental work, bladder, bowel and other surgery. Your doctor will provide you with a permanent card to carry describing precautions. C. Call [facility] if you have a fever, redness or swelling around the incision, cloudy drainage from incision, or sudden increase in pain in your hip, not relieved by your regular pain medication. D. Please call the office at if you have any concerns or questions about your operation or recovery. * YOU MAY SHOWER, NO TUB BATHS UNTIL CLEARED BY YOUR DOCTOR. * WEAR DALILA HOSE 20 HOURS PER DAY FOR 2 WEEKS. * YOU SHOULD USE A WALKER OR CRUTCHES FOR 2-4 WEEKS. THIS WILL HELP PREVENT STRAIN ON YOUR HIP MUSCLE AND ALLOW IT TO HEAL PROPERLY. YOU MAY WEAN TO A CANE TOLERATED. * MOST PATIENTS WILL HAVE HOME NURSING FOR THERAPY. IF YOU DECIDE TO DO OUTPATIENT PHYSICAL THERAPY, PLEASE SCHEDULE THIS 3 TIMES PER WEEK. * YOU HAVE A ZIPLINE CLOSURE. THIS IS IN PLACE OF [place] AND WILL BE REMOVED AT YOUR 2 WEEK POST OP VISIT. WE RECOMMEND KEEPING IT COVERED WITH A CLEAN DRY DRESSING TO PREVENT SNAGGING. CALL IF ANY REDNESS OR DRAINAGE. [phone]. FOLLOW UP VISIT: If appointment is not already scheduled: Please call [facility] to make a follow-up appointment for 2 weeks after your surgery at . Current Hospital Diet Patient's current hospital diet: Diabetes Type 2 Diet Discharge Diet Recommended Diet: Regular Diet Procedures Procedures Performed: Right Total Hip Arthroplasty Pending Studies Studies pending at discharge: no Laboratory Results Hemoglobin A1c Test 04/15/17 14:37 Range/Units Estimated Average Glucose 128 mg/dl Hemoglobin A1c 6.1 H 4.5-5.6 % Medical Emergencies . Who to Call and When: Medical Emergencies: If at any time you feel your situation is an emergency, please call 911 immediately. . Non-Emergent Contact Non-Emergency issues call your: Surgeon . "Provider Documentation" section prepared by Emma Aj. .
[2017-05-14] MEDS ORDERED: ONDA-170 PO (09:26)
[2017-05-14] MEDS ORDERED: ACET-1257 PO (09:26)
[2017-05-14] MEDS ORDERED: ASPEC325 PO (09:26)
[2017-05-14] MEDS ORDERED: CLB200 PO (09:26)
[2017-05-14] MEDS ORDERED: RXC5 PO (09:26)
[2017-05-14 09:55] VITALS: BP 144/80; PULSE 92; TEMP 36.8; O2SAT 98
[2017-05-16] MEDS ORDERED: LACTATED RINGER'S 1000ML 1,000 ML IV SCH (06:00)
[2017-05-16] MEDS ORDERED: ROPIVACAINE 5MG/ML 30 ML 150 MG, BUPIVACAINE 0.5% MPF INJ 30 ML, EpINEphrine HCL INJ 0.... INFIL SCH ×8 (06:00)
[2017-05-16] MEDS ORDERED: LACTATED RINGER'S 1000ML 500 ML IV SCH (06:00)
== END 2017-05-14 11:29 | disposition home health service (06) | DRG 470 ==
LOC: C.ACU 04:49 → C.3E 08:34 → ENRESERV 09:02
PROC: 0SRA0JA Replacement of Right Hip Joint, Acetabular Surface with Synthetic Substitute, Uncemented, Open Approach (ICD-10-PCS; principal; 2017-05-12 07:00)
DX: M16.11 Unilateral primary osteoarthritis, right hip (principal); D62 Acute posthemorrhagic anemia; R73.9 Hyperglycemia, unspecified; E86.0 Dehydration; Z91.018 Allergy to other foods